=== PATIENT | male | born 1955 | race Caucasian/White ===

== ENCOUNTER 2017-10-28 14:11 | Outpatient (CLI) | payer BC | END 2017-10-28 14:12 | disposition critical access hospital (66) | LOC: EMS 14:11 | PROVIDERS: ATTEND Surgery | DX: M25.512 Pain in left shoulder (principal); M79.632 Pain in left forearm; V18.4XXA Pedal cycle driver injured in noncollision transport accident in traffic accident, initial encounter; Y93.55 Activity, bike riding; Y92.414 Local residential or business street as the place of occurrence of the external cause | CPT/HCPCS: A0425; A0429 ==

== ENCOUNTER 2017-10-28 14:20 | Emergency (ER) | payer BC ==
[2017-10-28] MEDS ORDERED: HYDROmorphone 1 MG/ML CARPUJECT IM STA (14:34)
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
--- NOTE | 2017-10-28 15:32 | XRAY Report ---
Procedure Date: 10/28/2017 Accession Number: [id number] / [id number] Procedure: XR - Forearm LT CPT Code: FULL RESULT: EXAM: LEFT FOREARM RADIOGRAPHY EXAM DATE: 10/28/2017 03:16 PM. CLINICAL HISTORY: Left forearm pain. COMPARISON: None. TECHNIQUE: 2 views. FINDINGS: Bones: Normal. No fractures or bone lesions. Joints: Normal. No effusions or subluxations in the visualized wrist or elbow joints. Soft Tissues: Normal. No soft tissue swelling. IMPRESSION: Normal forearm radiography. [facility]
--- NOTE | 2017-10-28 15:33 | XRAY Report ---
Procedure Date: 10/28/2017 Accession Number: [id number] / [id number] Procedure: XR - Elbow 3 View LT CPT Code: FULL RESULT: EXAM: LEFT ELBOW RADIOGRAPHY EXAM DATE: 10/28/2017 03:16 PM. CLINICAL HISTORY: Left elbow pain. COMPARISON: None. TECHNIQUE: 3 views. FINDINGS: Bones: Normal. No fractures or bone lesions. Joints: Normal. No effusion. No subluxation. Soft Tissues: Normal. No soft tissue swelling. IMPRESSION: Normal elbow radiography. [facility]
[2017-10-28] MEDS ORDERED: HYDROcod/ACETAM 5/325 MG TABLET PO STA ×2 (15:36→16:04)
[2017-10-28 15:40] VITALS: BP 105/59
== END 2017-10-28 15:56 | disposition home or self-care (01) ==
LOC: EDBD → ED 14:20
DX: S50.12XA Contusion of left forearm, initial encounter (principal); S59.902A Unspecified injury of left elbow, initial encounter; V17.0XXA Pedal cycle driver injured in collision with fixed or stationary object in nontraffic accident, initial encounter; Y93.C2 Activity, hand held interactive electronic device; Y93.55 Activity, bike riding; Y92.410 Unspecified street and highway as the place of occurrence of the external cause
CPT/HCPCS: 73080; 73090; 96372; 99283; A9270; J1170

== ENCOUNTER 2023-01-24 08:15 | Emergency (ER) | payer MEDICARE, OTHER ==
[2023-01-24 08:38] VITALS: BP 118/79; O2SAT 100
--- NOTE | 2023-01-24 09:19 | ED Physician Documentation ---
PD HPI HEAD INJURY - Stated complaint Stated Complaint: RT EYE CUT/BANDAGE - Chief complaint Chief Complaint: Laceration - History obtained from History obtained from: Patient - History of Present Illness Mechanism of head injury: Fell (he states he slipped sheet when getting out of bed and struck forehead on night table corner with laceration. No LOC nor concussive symptoms. wound coninues to bleed.) Timing - onset: How many hours ago (1), Today Location of injury: Front (forehead just above right lateral eyebrow.) Quality of pain: Aching Associated symptoms: No: LOC, AMS, Nausea / vomiting, Neck pain Contributing factors: No: Anticoagulated Similar symptoms before: Has not had sx before Recently seen: Not recently seen Review of Systems Eyes: denies: Loss of vision, Decreased vision Skin: reports: Laceration (s) Musculoskeletal: denies: Neck pain Neurologic: denies: Focal weakness, Numbness, Confused, Altered mental status, Headache, LOC PD PAST MEDICAL HISTORY - Past Medical History Past Medical History: Yes Cardiovascular: None Respiratory: None Neuro: None Endocrine/Autoimmune: None GI: None : None HEENT: None Psych: Depression Musculoskeletal: None Derm: None - Past Surgical History Past Surgical History: No General: Other Derm: Skin cancer surgery - Present Medications Home Medications: Ambulatory Orders Medication Instructions Recorded Confirmed buPROPion [Wellbutrin Sr] 150 mg PO DAILY 01/24/23 01/24/23 - Allergies Allergies/Adverse Reactions: Allergies Allergy/AdvReac Type Severity Reaction Status Date / Time No Known Drug Allergies Allergy Verified 01/24/23 08:25 - Social History Does the pt smoke?: No Smoking Status: Never smoker Does the pt drink ETOH?: Yes Does the pt have substance abuse?: No - Immunizations Immunizations are current?: Yes PD ED PE NORMAL - Vitals Vital signs reviewed: Yes - General General: Alert and oriented X 3, No acute distress, Well developed/nourished - HEENT HEENT: PERRL, EOMI, Other (right eyebrow with v shaped laceration 2 cm full thickness through forehead skin. No FB. mild bleeding when dressing removed. ) - Neck Neck: Supple, no meningeal sign, No bony TTP - Derm Derm: Normal color, Warm and dry - Neuro Neuro: Alert and oriented X 3, fish filleter 2-12 intact, No motor deficit, No sensory deficit, Normal speech Results - Vitals Vitals: Oxygen O2 Source Room air Procedures - Laceration (location) right forehead Length in cm: 2 Wound type: Curved, Into subcut fat, Clean Anesthesia: Lidocaine 1% Wound preparation: Irrigated copiously NS, Wound explored, To the base, debridement of wound edges (traumatic laceration/avulsion) Skin layer closure: Nylon, Running, Size #-0 - enter number (6), Sutures - enter # (8) Other: Patient tolerated well, No complications, Neurovascular intact, Dressing applied, Tetanus UTD PD Medical Decision Making - ED course Complexity details: reviewed results (no concussive symptoms, headache and is not on blood thinners. Considered head CT but is low risk for ICH problems by head injury scoring. Age would be consideration as over 65 for NEXUS 2 guideline, but very good appearing clinically. ), considered differential, d/w patient Departure - Departure Disposition: 01 Home, Self Care Clinical Impression: Forehead laceration, Fall from slip, trip, or stumble Condition: Stable Record reviewed to determine appropriate education?: Yes Instructions: ED Laceration Facial Sutr Tape Comments: It is okay to wash and shower. Clean off the wound twice a day with soap and water, or peroxide and water. Apply some antibiotic ointment to it to keep it moist. Also to watch for signs of infection such as purulence, redness or increasing pain. Return to your primary care or the ER at the specified time for suture removal. Suture removal 7 to 8 days. Forms: PCP List Discharge Date/Time: 01/24/23 10:04
[2023-01-24] MEDS ORDERED: BACITRACIN ZINC OINT 1 PACKET TOP STA (09:43)
== END 2023-01-24 10:04 | disposition home or self-care (01) ==
LOC: ED 08:15
DX: S01.81XA Laceration without foreign body of other part of head, initial encounter (principal); W01.190A Fall on same level from slipping, tripping and stumbling with subsequent striking against furniture, initial encounter
CPT/HCPCS: 12011; 99283; A9270